=== PATIENT | male | born 1960 | race Caucasian/White ===

== ENCOUNTER 2021-10-25 04:26 | Day surgery (SDC) | payer OTHER ==
[2021-10-21 16:37] VITALS: BMI 31.4
[2021-10-25] MEDS ORDERED: MIDAZOLAM HCL 2 MG/2 ML SINGLE DOSE VIAL ONE (13:29)
[2021-10-25 15:08] VITALS: TEMP 98.4
[2021-10-25 15:29] VITALS: BP 107/76; PULSE 66
== END 2021-10-25 15:56 | disposition home or self-care (01) ==
LOC: JASU-SURG 04:26
PROVIDERS: ATTEND Urology
PROC: 0TF3XZZ Fragmentation in Right Kidney Pelvis, External Approach (ICD-10-PCS; principal; 2021-10-25 12:30)
DX: N20.0 Calculus of kidney (principal)

== ENCOUNTER 2023-04-03 09:40 | Emergency (ER) | payer OTHER ==
[2023-04-03 09:53] VITALS: BP 105/72; PULSE 83; RESP 18; TEMP 97.7; BMI 31.4
[2023-04-03] MEDS ORDERED: IBUPROFEN 600 MG TABLET (FP) PO ONE ×2 (11:26→11:46)
== END 2023-04-03 12:49 | disposition home or self-care (01) ==
LOC: JERFT 09:40 → JER 09:40 → JERFT 12:49
DX: S99.922A Unspecified injury of left foot, initial encounter (principal); X50.1XXA Overexertion from prolonged static or awkward postures, initial encounter
CPT/HCPCS: 73610-TC-LT-FY; 73630-TC-LT; 99283-25